=== PATIENT | male | born 1950 | race Caucasian/White ===

== ENCOUNTER → 2017-03-17 | Outpatient (CLI) | payer OTHER ==
--- NOTE | ~2017-03-17 | CT7 ---
[facility] A Service of [facility] RADIOLOGY TEXT RESULTS PATIENT: [facility] #: [id number] AGE: [address]: Hieu Rodriguez MD SEX: M ORDER DR: [id number] [facility]. [place], [place] [address] [id number] O MR#: [id number] Acc #: [id number] NAME: LEILA KLEIN : 1950 SEX: M STUDY DATE/TIME: 03/17/2017 10:04 UNIT: [facility] ROOM: STUDY DESCRIPTION: CT Abdomen Wo Cont Attending Physician: Hieu Rodriguez M.D. Referring Physician: Hieu Rodriguez M.D. Ordering Physician: Hieu Rodriguez M.D. Primary Care Physician: Hieu Rodriguez M.D. MEDICAL IMAGING REPORT This report is preliminary unless electronic signature is present EXAM CT abdomen without contrast INDICATION Large right upper quadrant knot for 2 weeks. Knot disappears when laying flat. TECHNIQUE Axial 5 mm images were obtained through abdomen without contrast. This CT examination was performed with one or more of the following radiation dose reduction techniques: automatic exposure control, adjustment of mA and/or kV according to patient size, and iterative reconstruction. FINDINGS A G-tube is present. The liver contains some benign calcifications. The gallbladder is normal. There are calcified lymph nodes near the cassidy hepatis. The liver, gallbladder, spleen, pancreas, adrenal glands and kidneys are otherwise normal. A marker was placed over the right upper quadrant anteriorly to indicate the site of the patient's lump. There is no hernia visible in this region and the subcutaneous fat appears normal. There is no evidence of a lipoma. The aorta is normal in size. The bones are normal. IMPRESSION 1. A gel-cap was placed over the knot in the patient's right upper abdomen. The underlying tissues appear normal. I do not see any evidence of hernia or lipoma. 2. A G-tube is present. 3. Otherwise, the study is negative. Dictated by... Flynn Miranda M.D. [facility] A Service of [facility] RADIOLOGY TEXT RESULTS PATIENT: LE[facility] KLEIN [facility] UNIT #: [id number] AGE: [address]: Hieu Rodriguez MD SEX: M ORDER DR: THIS IS AN ELECTRONICALLY VERIFIED REPORT Flynn Miranda M.D. at 03/17/2017 3:55 PM Claudia TD: 03/17/2017 14:17 JOB #: [id number] MEDICAL IMAGING REPORT Page 1 of 1 COPY
== END | disposition home or self-care (01) ==
LOC: CCAT 09:01
DX: R19.01 Right upper quadrant abdominal swelling, mass and lump (principal); Z97.8 Presence of other specified devices
CPT/HCPCS: 74150